=== PATIENT | male | born 1980 | race Caucasian/White ===

== ENCOUNTER 2018-12-17 06:03 | Day surgery (SDC) | payer OTHER ==
--- NOTE | 2018-12-16 18:25 | GHP ---
[f rep st] PREOP HISTORY AND PHYSICAL DATE OF ADMISSION: 12/17/2018 ADMISSION DIAGNOSIS: Left hydronephrosis with ureterocele, urinary retention, and ureterocele stone. 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 He has had a ureterocele with a stone, and at the present time he is admitted fo r transurethral resection of ureterocele and removal of the stone. His previous CT scan was reported ly done at [facility]. We could not access the imaging. He says that would not ret rieve them for him. At the present time, he is admitted for the above procedure. MEDICATIONS: None. PAST SURGICAL HISTORY: None. PAST MEDICAL HISTORY: Urinary retention and ureterocele. FAMILY HISTORY: Noncontributory. SOCIAL HISTORY: Alcohol consumption is noted. Smoker being noted. REVIEW OF SYSTEMS: Negative cardiac, respiratory, GI and endocrine. PHYSICAL EXAMINATION: VITAL SIGNS: Stable. CHEST: Clear. HEART: Regular rate and rhythm. ABDOM EN: Normal. No organomegaly, rebound or guarding. LOWER EXTREMITIES: Normal. He is admitted for the above procedure. Indications, complications, and options have been discussed. Written and verbal consent has been obtained, and he is admitted for the above procedure. /[id number]/MODL
[2018-12-17] MEDS ORDERED: ceFAZolin 2 GM/DEXTROSE 100 ML IV ONE (06:10)
[2018-12-17] MEDS ORDERED: LR 1,000 ML IV ONE (06:42)
--- NOTE | 2018-12-17 06:52 | PDANEPAE ---
ANE Past Medical History - Cardiovascular History Hx Hypertension: No Hx Arrhythmias: No Hx Chest Pain: No Hx Coronary Artery / Peripheral Vascular Disease: No Hx CHF / Valvular Disease: No Hx Palpitations: No - Pulmonary History Hx COPD: No Hx Asthma/Reactive Airway Disease: No Hx Recent Upper Respiratory Infection: No Hx Oxygen in Use at Home: No Hx Sleep Apnea: No Sleep Apnea Screening Result - Last Documented: Negative - Neurologic History Hx Cerebrovascular Accident: No Hx Seizures: No Hx Dementia: No - Endocrine History Hx Diabetes: No - Renal History Hx Renal Disorders: Yes Renal History Comment: BPH - Liver History Hx Hepatic Disorders: No - Neurological & Psychiatric Hx Hx Neurological and Psychiatric Disorders: No - Cancer History Hx Cancer: No - Congenital Disorder History Hx Congenital Disorders: No - GI History Hx Gastrointestinal Disorders: No - Other Health History Other Health History: NONE - Chronic Pain History Chronic Pain: No - Surgical History Prior Surgeries: N/A ANE Review of Systems Review of Systems: - Exercise capacity METS (RN): 5 METS ANE Patient History - Allergies Allergies/Adverse Reactions: No Known Allergies Allergy (Verified 12/15/18 16:34) - Home Medications Home Medications: NK [No Known Home Meds] 12/10/18 [Last Taken Unknown] - NPO status NPO Since - Liquids (Date): 12/16/18 NPO Since - Liquids (Time): 21:00 NPO Since - Solids (Date): 12/16/18 NPO Since - Solids (Time): 19:00 - Smoking Hx Smoking Status: Heavy smoker - Family Anes Hx Family Hx Anesthesia Complications: NONE ANE Labs/Vital Signs - Vital Signs Blood Pressure: 122/82 Heart Rate: 70 Respiratory Rate: 16 Height: 187.96 cm Weight: 90.718 kg ANE Physical Exam - Airway Mallampati Score: Class 1 - ASA Status ASA Status: II ANE Anesthesia Plan Anesthesia Plan: GA w LMA
--- NOTE | 2018-12-17 06:59 | PDHPUP ---
History & Physical Update H&P update statement: This history and physical update is based on an assessment of the patient which was completed after admission or registration (within 24 hours), but prior to the surgery/procedure. H&P update: H&P reviewed & patient examined, no change in patient's condition since H&P completed
[2018-12-17] MEDS ORDERED: MIDAZOLAM 2 MG/2 ML VIAL ONE (07:01)
[2018-12-17] MEDS ORDERED: fentaNYL 100 MCG/2 ML INJ ONE (07:03)
[2018-12-17] MEDS ORDERED: PROPOFOL 200 MG/20 ML VIAL ONE (07:03)
[2018-12-17] MEDS ORDERED: ONDANSETRON 4 MG/2 ML VIAL ONE (07:04)
[2018-12-17] MEDS ORDERED: LIDOCAINE 2% JELLY 6 ML TOPICAL SYR ONE (07:04)
[2018-12-17] MEDS ORDERED: METOCLOPRAMIDE 10 MG/2 ML VIAL ONE (07:04)
[2018-12-17] MEDS ORDERED: LIDOCAINE 2% JELLY 20 ML (UROJECT) ONE (08:07)
[2018-12-17] MEDS ORDERED: PROMETHAZINE HCL 25 MG/ML INJ IVP PRN (08:27)
[2018-12-17] MEDS ORDERED: LR 500 ML IV PRN (08:27)
[2018-12-17] MEDS ORDERED: fentaNYL 100 MCG/2 ML INJ IVP PRN (08:27)
[2018-12-17] MEDS ORDERED: NALOXONE HCL 0.4 MG/ML INJ IVP PRN (08:27)
[2018-12-17] MEDS ORDERED: HYDROCODONE/APAP 5/325 TAB PO PRN (08:27)
--- NOTE | 2018-12-17 08:28 | POSTANESTH ---
Post Anesthetic Evaluation Cardiovascular Status: Normal, Stable Respiratory Status: Normal, Stable Level of Consciousness/Mental Status: Can Participate in Eval Pain Control: Adequate, Prn Tx Ordered Nausea/Vomiting Control: Adequate, Prn Tx Ordered Complications Possibly Related to Anesthesia: None Noted
--- NOTE | 2018-12-17 08:31 | POSTOPPROG ---
Post Op Note Date of Operation: 12/17/18 (dictated) Surgeon: Gabriel Angelo Anesthesiologist: Chante Anesthesia: LMA Pre-op Diagnosis: left ureterocele, ureteral stone Post-op Diagnosis: same with bladder stone Procedure: TUR ureterocele, removal of ureteral stone Inf/Abcess present in the surg proc area at time of surgery?: No EBL: Minimal Drains: Other (cuello) Specimen(s): stone and resected tissue sent
--- NOTE | 2018-12-17 08:42 | GOP ---
[f rep st] OPERATIVE REPORT DATE OF OPERATION: 12/17/2018 SURGEON: Gabriel Angelo MD ANESTHESIA: General. ANESTHESIOLOGIST: Dr. Sharif. PREOPERATIVE DIAGNOSIS: Urinary retention secondary to ureterocele and ureteral calculus. POSTOPERATIVE DIAGNOSIS: Urinary retention secondary to ureterocele and ureteral calculus. PROCEDURE PERFORMED: Transurethral resection of ureterocele and extraction of ureteral calculus and placement of Burdick catheter under anesthesia. FINDINGS: DESCRIPTION OF PROCEDURE: After undergoing general anesthesia, prepped and draped in normal sterile fashion in dorsal lithotomy position and appropriate time-out, urethra was normal. The bladder neck was tight and he had a large ureterocele. He did have a bladder calculus that was extracted and dago aye, and then evaluation, his right ureteral orifice had a bit of a ureterocele appearance, but was n onobstructing and appeared to be more refluxing in nature because of its patulousness. The left uret er was stenotic at its meatus and had this large ureterocele that would actually fill and come across the midline and occlude the outlet. After evaluation, I elected to resect the ureterocele in total and then after that, he had a distal ureteral stone. I grasped and removed the stone and sent to [facility]. At the end of the procedure, I Ellik his bladder free of all chips and clots. There were no stones, no chips, no clots, and no bleeding. Then, he had good efflux coming from the left large di lated ureter and the Uro-jet placed in the urethra, Burdick catheter placed, 10 cc balloon inflated, an d he will be discharged home today. May consider removing his catheter depending on the amount of bl eeding he has, but then would like him to have a successful voiding trial. Specimen of the stone was sent separate from the TUR of the ureterocele specimen and no complications encountered. /[id number]/MODL
[2018-12-17 09:49] VITALS: BP 108/76
== END 2018-12-17 10:49 | disposition home or self-care (01) ==
LOC: UNDOADMOB 06:03 → FSGY 06:03 → F3N 06:03 → FSGY 10:49 → UNDODISOB 10:49 → EDSTATUS 13:30
PROVIDERS: ATTEND Specialist
DX: R33.9 Retention of urine, unspecified (principal); N28.89 Other specified disorders of kidney and ureter; N13.2 Hydronephrosis with renal and ureteral calculous obstruction; N21.0 Calculus in bladder; Z72.0 Tobacco use
CPT/HCPCS: 82365-90; J0690; J2250; J2405; J2704; J2765; J3010